=== PATIENT | male | born 2005 | race Caucasian/White ===

== ENCOUNTER 2023-11-16 17:07 | Inpatient (IN) | payer MEDICAID ==
[~2023-11-16] VITALS: Ht 180.3 cm; Wt 77.1 kg
[2023-11-16] MEDS: SODIUM CHLORIDE 0.9% 1,000 ML IV ONE ×2 (17:58→20:39)
[2023-11-16 18:09] LABS: BASOPHILS % 0.6 % (0.0-2.0); EOSINOPHILS % 1.3 % (0.0-5.0); HEMATOCRIT. 41.1 % (42.0-52.0); HEMOGLOBIN. 13.9 g/dL (14.0-18.0); LYMPHOCYTES % 46.5 % (20.0-50.0); MEAN CORPUSCULAR HEMOGLOBIN 29.6 pg (28.0-32.0); MEAN CORPUSCULAR HGB CONC 33.8 g/dL (31.0-37.0); MEAN CORPUSCULAR VOLUME 87.6 fL (80.0-94.0); MEAN PLATELET VOLUME 7.8 fl (7.4-10.4); MONOCYTES % 4.4 % (2.0-8.0); NEUTROPHILS % 47.2 % (40.0-76.0); PLATELET 280 x1000/uL (130-400); RED BLOOD CELL COUNT 4.69 mill/uL (4.7-6.1); RED CELL DISTRIBUTION WIDTH 13.7 % (11.6-14.6)
[2023-11-16 18:13] LABS: CHLORIDE 109 mEq/L (98-107); POTASSIUM 4.1 mEq/L (3.5-5.1); SODIUM 142 mEq/L (136-145)
[2023-11-16 18:14] LABS: CARBON DIOXIDE 25 mEq/L (21-32)
[2023-11-16 18:15] LABS: CALCIUM 8.5 mg/dL (8.7-10.4)
[2023-11-16 18:19] LABS: CREATININE 0.8 mg/dL (0.6-1.3); GLUCOSE 87 mg/dL (70-105); UREA NITROGEN BLOOD 8 mg/dL (9-23)
[2023-11-16 18:20] LABS: ETHANOL BLOOD 207 mg/dL (<10)
[2023-11-16 20:52] LABS: CLARITY URINE CLEAR (CLEAR); COLOR URINE YELLOW (YELLOW); GLUCOSE URINE NEGATIVE (NEGATIVE); KETONES URINE TRACE (NEGATIVE); LEUKOCYTE ESTERASE URINE NEGATIVE (NEGATIVE); NITRITE URINE NEGATIVE (NEGATIVE); OCCULT BLOOD URINE NEGATIVE (NEGATIVE); PH URINE 5.5 (4.5-8.0); PROTEIN URINE NEGATIVE (NEGATIVE); SPECIFIC GRAVITY URINE 1.012 (1.005-1.030); UROBILINOGEN URINE 0.2 E.U./dL (0.2-1.0)
[2023-11-16 20:59] LABS: *AMPHETAMINES SCREEN URINE PRESUMPTIVE POSITIVE (NEGATIVE)
[2023-11-16 21:00] LABS: *BARBITURATES SCREEN URINE NEGATIVE (NEGATIVE); *BENZODIAZEPINES SCREEN URINE PRESUMPTIVE POSITIVE (NEGATIVE); *COCAINE SCREEN URINE NEGATIVE (NEGATIVE); CANNABINOID URINE SCREEN PRESUMPTIVE POSITIVE (NEGATIVE); ECSTASY MDMA SCREEN URINE NEGATIVE (NEGATIVE); METHADONE URINE SCREEN NEGATIVE (NEGATIVE); OPIATES URINE SCREEN NEGATIVE (NEGATIVE); PHENCYCLIDINE URINE SCREEN NEGATIVE (NEGATIVE)
[2023-11-17] MEDS ORDERED: LORAZEPAM 2MG/ML INJ IV PRN (01:45)
[2023-11-17] MEDS ORDERED: CLONIDINE 0.1MG TABLET PO PRN (01:45)
[2023-11-17] MEDS ORDERED: SODIUM CHLORIDE 0.9% 500 ML IV NR (01:45)
[2023-11-17] MEDS ORDERED: IPRATROPIUM/ALBUTEROL 0.5-3(2.5)MG/3ML NEB HHN PRN (01:45)
[2023-11-17] MEDS ORDERED: DOCUSATE SODIUM 100MG CAPSULE PO PRN (01:45)
[2023-11-17] MEDS ORDERED: ONDANSETRON HCL 4MG/2ML INJ IV PRN (01:45)
[2023-11-17] MEDS ORDERED: ACETAMINOPHEN 325MG TABLET PO PRN ×2 (01:45)
[2023-11-17] MEDS: FOLIC ACID 1 MG, THIAMINE HCL 100 MG, MVI, ADULT NO.1 10 ML in DEXTROSE 5% WATER 1,000 ML IV NR (05:31)
[2023-11-17] MEDS: CHLORDIAZEPOXIDE 25MG CAPSULE PO SCH (06:45)
[2023-11-17] MEDS: MIDODRINE HCL 5MG TABLET PO SCH (09:21)
[2023-11-17 09:38] LABS: BASOPHILS % 0.3 % (0.0-2.0); EOSINOPHILS % 1.5 % (0.0-5.0); HEMATOCRIT. 42.8 % (42.0-52.0); HEMOGLOBIN. 14.2 g/dL (14.0-18.0); LYMPHOCYTES % 24.4 % (20.0-50.0); MEAN CORPUSCULAR HEMOGLOBIN 29.4 pg (28.0-32.0); MEAN CORPUSCULAR HGB CONC 33.3 g/dL (31.0-37.0); MEAN CORPUSCULAR VOLUME 88.3 fL (80.0-94.0); MEAN PLATELET VOLUME 7.8 fl (7.4-10.4); MONOCYTES % 4.9 % (2.0-8.0); NEUTROPHILS % 68.9 % (40.0-76.0); PLATELET 249 x1000/uL (130-400); RED BLOOD CELL COUNT 4.85 mill/uL (4.7-6.1)
[2023-11-17 09:50] LABS: D-DIMER < 0.19 mg/L FEU (<0.50); INR 1.1; PROTHROMBIN TIME 11.9 sec (9.6-11.0)
[2023-11-17 09:53] LABS: CHLORIDE 108 mEq/L (98-107); POTASSIUM 4.1 mEq/L (3.5-5.1); SODIUM 141 mEq/L (136-145)
[2023-11-17 09:54] LABS: CARBON DIOXIDE 27 mEq/L (21-32)
[2023-11-17 09:55] LABS: CALCIUM 8.7 mg/dL (8.7-10.4)
[2023-11-17 09:59] LABS: CREATININE 0.6 mg/dL (0.6-1.3); GLUCOSE 134 mg/dL (70-105)
[2023-11-17 10:00] LABS: PROTEIN TOTAL 5.6 g/dL (6.0-8.3)
[2023-11-17 10:01] LABS: ALANINE AMINOTRANSFERASE 13 IU/L (10-49); ALBUMIN 3.7 g/dL (3.2-4.8); ASPARTATE AMINOTRANSFERASE 16 IU/L (<34); BILIRUBIN DIRECT 0.2 mg/dL (<=3.0); CREATINE KINASE 142 IU/L (46-171)
[2023-11-17 10:02] LABS: BILIRUBIN TOTAL 0.6 mg/dL (0.1-1.0); PHOSPHORUS 3.3 mg/dL (2.5-4.9)
[2023-11-17 10:08] LABS: UREA NITROGEN BLOOD < 5 mg/dL (9-23)
[2023-11-17] MEDS: DEXT 5%/0.45% NACL 1000ML 1,000 ML IV SCH (11:18)
[2023-11-17 20:56] VITALS: BP 163/54; PULSE 53; RESP 16; TEMP 36.44736; O2SAT 99
[2023-11-17 21:30] VITALS: BP 105/65; PULSE 65; RESP 18; TEMP 36.8072
[2023-11-18] VITALS: BP 108/64; PULSE 65; RESP 18; TEMP 36.50292; O2SAT 100
[2023-11-18 04:00] VITALS: BP 108/61; PULSE 76; RESP 18; TEMP 36.89184; O2SAT 100
[2023-11-18 07:58] LABS: BASOPHILS % 0.4 % (0.0-2.0); HEMATOCRIT. 43.5 % (42.0-52.0); HEMOGLOBIN. 14.6 g/dL (14.0-18.0); LYMPHOCYTES % 37.3 % (20.0-50.0); MEAN CORPUSCULAR HEMOGLOBIN 29.4 pg (28.0-32.0); MEAN CORPUSCULAR HGB CONC 33.6 g/dL (31.0-37.0); MEAN CORPUSCULAR VOLUME 87.5 fL (80.0-94.0); MEAN PLATELET VOLUME 8.3 fl (7.4-10.4); MONOCYTES % 7.3 % (2.0-8.0); PLATELET 269 x1000/uL (130-400); RED BLOOD CELL COUNT 4.97 mill/uL (4.7-6.1); RED CELL DISTRIBUTION WIDTH 13.7 % (11.6-14.6); WHITE BLOOD COUNT 4.9 x1000/uL (4.5-11.0)
[2023-11-18 08:04] LABS: CARBON DIOXIDE 28 mEq/L (21-32); CHLORIDE 108 mEq/L (98-107); POTASSIUM 3.9 mEq/L (3.5-5.1); SODIUM 140 mEq/L (136-145)
[2023-11-18 08:06] VITALS: BP 102/52; PULSE 45; RESP 18; TEMP 36.16956; O2SAT 100
[2023-11-18 08:10] LABS: CREATININE 0.7 mg/dL (0.6-1.3); GLUCOSE 86 mg/dL (70-105); UREA NITROGEN BLOOD 5 mg/dL (9-23)
[2023-11-18 08:12] LABS: PHOSPHORUS 3.6 mg/dL (2.5-4.9)
[2023-11-18 12:00] VITALS: BP 107/45; PULSE 88; RESP 18; TEMP 36.55848; O2SAT 100
[2023-11-18 15:51] VITALS: BP 108/52; PULSE 63; RESP 20; TEMP 36.28068; O2SAT 100
[2023-11-18 17:20] VITALS: BP 108/52; PULSE 63; TEMP 98.3; O2SAT 100
== END 2023-11-18 20:00 | disposition home or self-care (01) | DRG 775 ==
LOC: ER 17:07 → 5WST 20:38 → 7WST 11-17 21:58
PROVIDERS: ADMIT Internal Medicine; ATTEND Internal Medicine
DX: F10.129 Alcohol abuse with intoxication, unspecified (principal); F10.139 Alcohol abuse with withdrawal, unspecified; F17.210 Nicotine dependence, cigarettes, uncomplicated; F20.9 Schizophrenia, unspecified; F19.10 Other psychoactive substance abuse, uncomplicated
CPT/HCPCS: 36415; 80048; 80076; 80305; 80307; 80320; 80329; 81003; 82550; 83735; 83880; 84100; 85025; 85379; 93005; 99285; J3411; J3490; J7030; J7070; G0480